=== PATIENT | female | born 1970 | race Caucasian/White ===

== ENCOUNTER 2022-02-02 10:02 | Emergency (ER) | payer OTHER, SELFPAY ==
[2022-02-02 10:39] VITALS: BP 135/83; PULSE 92; RESP 18; TEMP 36.8; O2SAT 100
--- NOTE | 2022-02-02 10:48 | ED.SKABFB ---
HPI - Skin/Abscess/Foreign Bdy General Chief complaint: Skin/Abscess/Foreign Body Stated complaint: lesions on tailbone and both buttocks Source: patient Mode of arrival: ambulatory History of Present Illness HPI narrative: This is a 52 year old female that present to urgent care stating that she started to feel a sore on her buttocks on Tuesday but has some thing to take care of at the job that she was not able to come in. Patient states that she is at the point now where she is barely able to sit. Patient denies this ever happening before, denies diabetes, denies being exposed to any STD lately, denies any skin issue the only thing with her buttock his she has hemorrhoids Related Data Home Medications Medication Instructions Recorded Confirmed azilsartan medoxomil 40 1 tablet DAILY 02/02/22 02/02/22 mg-chlorthalidone 12.5 mg tablet (Edarbyclor) buspirone 10 mg tablet 10 mg TID 02/02/22 02/02/22 Allergies Allergy/AdvReac Type Severity Reaction Status Date / Time Penicillins Allergy Swelling Verified 02/02/22 15:47 of Lip/Tongue/Throat Review of Systems Review of Systems: abscess to buttock All systems reviewed & are unremarkable except as noted in HPI and below PMFSH Past Medical History Medical History Anxiety Asthma Breast cancer History of blood transfusion Hypertension IBS (irritable bowel syndrome) Surgical History Surgical History S/P cholecystectomy S/P dilatation and curettage S/P lumpectomy of breast S/P nasal surgery Family History Family History Father Cancer Mother Cancer Sibling Cancer Social History Social History Smoking status: Never smoker Alcohol intake: current Comments At time as signature, I have reviewed and agree with nursing past medical, social, surgical and family history. Please see nursing chart for further information. There is no relevant family history pertinent to the presenting complaint. Exam Narrative: GENERAL:Well-appearing, well-nourished, and in no acute distress. HEAD:Normocephalic, atraumatic. EYES: PERRLA ENT: Nares clear Mucous membranes moist. Buttocks: Pilonidal area tiny pus 1oclock tunneling abscess with yellow thick drainage, right lower buttock cheeck swollen warm and erythema hard 6 oclock abscess see procedure sheet as well EXTREMITIES: Normal range of motion. No edema. SKIN: Warm, dry, no rash. NEURO: No focal deficits. Alert and oriented x3. Course Course Level of Care: Express Care Visit Vital Signs Vital signs: Vital Signs Temperature 98.2 F 02/02/22 10:39 Pulse Rate 92 02/02/22 10:39 Respiratory Rate 18 02/02/22 10:39 Blood Pressure 135/83 02/02/22 10:39 Pulse Oximetry 100 02/02/22 10:39 Oxygen Delivery Room Air 02/02/22 10:39 Temperature 98.2 F 02/02/22 10:39 Pulse Rate 92 02/02/22 10:39 Respiratory Rate 18 02/02/22 10:39 Blood Pressure 135/83 02/02/22 10:39 Pulse Oximetry 100 02/02/22 10:39 Oxygen Delivery Room Air 02/02/22 10:39 Procedures Abscess I/D tia-rectal: Date of Incision: 02/02/22 Time of Incision: 10:45 Sedation/analgesia: none Local Anesthetic: none Technique: incised with #15 blade Amount of fluid expressed (mL): 20 Irrigation: No Packing used?: iodoform I&D Results: Other (yellow pus ) Complications: pain Abcess I&D Additional Comments: Several small pustule areas that were starting drain 1 o'clock tunneling cleansed with Betadine pulled out some yellow thick fibrous tissue then there was bleeding noted medium size whole noted applied .25 inch iodoform gauze to area swollen warm to touch hard erythemas area painful to barely touch small
[2022-02-02] MEDS: KETOROLAC 30 MG/ML VIAL (*BKC) IM (11:35)
--- NOTE | 2022-02-02 19:48 | PC.NURSE ---
1039- 1' o'clock R upper tunneling, thick yellow fibrous drainage noted, directly under is an area of non- fluctuant, hot to touch, edematous, erythematous painful to touch, indurated wound with serosanguineous drainage noted, pt could not tolerate anything to be done to this area. 9 o'clock L tunneling with thick fibrous drainage noted
== END 2022-02-02 13:08 | disposition home or self-care (01) ==
PROVIDERS: Emergency Provider Nurse Practitioner Family; PCP Nurse Practitioner Family
DX: L03.317 Cellulitis of buttock (principal); L02.31 Cutaneous abscess of buttock; J45.909 Unspecified asthma, uncomplicated; I10 Essential (primary) hypertension; Z85.3 Personal history of malignant neoplasm of breast; F41.9 Anxiety disorder, unspecified
CPT/HCPCS: 10061; 87070; 87075; 87077; 87147; 87181; 87186; 87205; 96372; 99213; G0463; J1885

== ENCOUNTER 2022-07-14 11:20 | Outpatient (CLI) | payer OTHER, SELFPAY | END 2022-07-14 11:21 | disposition home or self-care (01) | PROVIDERS: PCP Nurse Practitioner Family; Visit Provider Surgery | DX: Z22.322 Carrier or suspected carrier of Methicillin resistant Staphylococcus aureus (principal) | CPT/HCPCS: 87081 ==